=== PATIENT | female | born 1985 | race Caucasian/White ===

== ENCOUNTER 2023-07-02 04:38 | Inpatient (IN) ==
[2023-07-02] MEDS ORDERED: Lidocaine 1% VIAL 10 MG/ML 30 ML VIAL INJ PRN (05:24)
[2023-07-02] MEDS ORDERED: Lactated Ringers 1000 ml BAG 1,000 ML IV ONE (05:24)
[2023-07-02] MEDS ORDERED: Buffered Lidocaine 1% SYRIN 1 ml INTRADERM ONE (05:24)
[2023-07-02] MEDS ORDERED: Glycerin ADULT 2.4 gm SUPP PR PRN (05:27)
[2023-07-02] MEDS ORDERED: Lactated Ringers 1000 ml BAG 1,000 ML IV SCH ×2 (06:00)
[2023-07-02 09:48] LABS: Urine Benzodiazepine Screen None Detected (None Detect); Urine Cannabinoids Screen None Detected (None Detect); Urine Opiates Screen None Detected (None Detect)
[2023-07-02] MEDS: Oxytocin 10 UNITS/ML 1 ML VIAL IM ONE (10:40)
[2023-07-02] MEDS: Dibucaine 1% OINT 28.35 GM TUBE PR PRN (12:33)
[2023-07-02] MEDS: Witch Hazel PAD JAR TOPICAL PRN (12:33)
[2023-07-02 16:49] LABS: ABS Lymphocytes 2.3 10^3/uL (1.0-4.8); ABS Monocytes 0.9 10^3/uL (0.0-0.9); ABS Neutrophils 6.9 10^3/uL (1.5-7.6); ABS Nucleated RBC 0.01 10^3/ul; Eosinophil % 0.5 %; Hematocrit 29.7 % (35-45); Hemoglobin 10.2 g/dL (11.5-14.3); Lymphocyte % 22.8 %; Mean Corpuscular Hemoglobin 30.5 pg (27-33); Mean Corpuscular Hgb Conc 34.5 g/dL (31-36); Mean Corpuscular Volume 88.4 fL (80-97); Platelet Count 247 10^3/uL (150-450); Red Blood Count 3.36 10^6/uL (3.63-4.92); Red Cell Distribution Width 13.3 % (12-17); White Blood Count 10.2 10^3/uL (3.8-11.8)
[2023-07-03 08:39] VITALS: BP 105/67
== END 2023-07-03 10:40 | disposition home or self-care (01) | DRG 807 ==
LOC: MCHOBOUT 04:38 → MCHOB 05:05
PROVIDERS: ADMIT Advanced Practice Midwife; ATTEND Advanced Practice Midwife